=== PATIENT | male | born 1995 | race Two or more races ===

== ENCOUNTER 2023-08-12 09:35 | Emergency (ER) | payer SELFPAY ==
[2023-08-12 09:40] VITALS: BP 161/74; PULSE 51; TEMP 36.7; O2SAT 98; BMI 39.7
--- NOTE | 2023-08-12 10:04 | XR_ITS ---
[facility] [id number] Patient Name: BEA STEEL MRN: [id number] date: 1995 Sex: M Assigned Patient Location: ER Current Patient Location: ER Accession/Order Number: [id number] Exam Date: 08/12/2023 10:30 Report Date: 08/12/2023 10:58 At the request of: MANJEET LI Procedure: XR abdomen min 2V EXAM: Abdomen flat and upright: HISTORY: Lower abdominal pain for 5 days. FINDINGS: Flat and upright views of the abdomen and pelvis show a normal bowel gas pattern. There is a mild amount stool in the colon. No abnormal calcifications are seen. The upright view shows a gentle levocurvature in the lower thoracic spine. Osseous structures are otherwise normal. XR/XR abdomen min 2V IMPRESSION: Grossly negative for an acute intra-abdominal process. If clinical concern remains, consider further imaging with CT. Electronically authenticated by: JOAN KEVIN Date: 08/12/2023 10:58
[2023-08-12] MEDS: 0.9 % SODIUM CHLORIDE 1,000 ML 1000 ML IV (10:09)
[2023-08-12] MEDS: KETOROLAC TROMETHAMINE 30 MG/ML VIAL 15 MG IVP (10:09)
[2023-08-12 10:20] LABS: Basophils Percent Auto 0.4 % (0.2-2.0); Eosinophils Absolute Auto 0.2 10^3/uL (0.0-0.7); Eosinophils Percent Auto 2.8 % (0.9-7.0); Hemoglobin 15.4 g/dL (14.0-18.0); Immature Granulocytes Abs Auto 0.02 10^3/uL (0.00-0.03); Immature Granulocytes Pct Auto 0.3 % (0.0-0.5); Lymphocytes Absolute Auto 2.1 10^3/uL (1.2-3.8); Lymphocytes Percent Auto 27.6 % (20.5-60.0); Mean Corpuscular HGB Conc 32.8 g/dL (29.9-35.2); Mean Corpuscular Volume 85.5 fL (80.0-94.0); Mean Platelet Volume 11.3 fL (9.5-13.5); Monocytes Absolute Auto 0.8 10^3/uL (0.3-0.8); Monocytes Percent Auto 10.1 % (1.7-12.0); Neutrophils Absolute Auto 4.4 10^3/uL (1.4-6.5); Neutrophils Percent Auto 58.8 % (43.0-75.0); Platelet Count 228 10^3/uL (150-450); Red Cell Distribution Width 12.6 % (11.0-15.0); White Blood Count 7.5 10^3/uL (4.0-11.0)
--- NOTE | 2023-08-12 10:28 | ED_ITS ---
HPI HPI - General Adult General Chief complaint: Abdominal Pain Stated complaint: ABDOMINAL/BACK PAIN Time Seen by Provider: 08/12/23 10:02 Source: patient Mode of arrival: walk-in Limitations: no limitations History of Present Illness HPI narrative: Patient is a 27-year-old who is presenting to the ER today with chief complaint of bilateral anterior, lateral, and lower back pain for the past 2 days to 3 days. Patient works [employer]. 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 Patient does not recall any specific event at work that caused the pain. Patient states that he does urinate a lot, patient does not feel that he drinks a lot of fluids. Patient had lab work and urine sample done 2 months ago that showed no acute abnormalities with his urine or labs. Patient has intermittent groin pain, but nothing specific. Patient has no rash. Patient states he has no abnormal bowel movements. No chest pain or shortness of breath. No fever or chills. No other acute complaints. Patient looks comfortable, is supposed to be working [employer] today. No diabetes that he is aware of. Patient says that his girlfriend was worried about possible hernias despite patient having no palpable hernias to abdominal wall, scrotum or to his inguinal area. All systems are negative except as noted/marked. All systems reviewed and otherwise negative. Nurses note and vital signs reviewed and patient is not hypoxic. General: The patient appears well and in no apparent distress. Patient is resting comfortably on cart. Patient is not toxic, lethargic, or listless Skin: Warm, dry, no pallor noted. There is no rash noted. No petechiae, purpura. Head: Normocephalic, atraumatic Eye: Normal conjunctiva, no drainage, EOMI. PERRL Ears, Nose, Mouth, and Throat: oral mucosa is moist. Nares patent. Mouth without vesicles. Cardiovascular: Regular Rate and Rhythm, no murmur, gallop, rub Respiratory: Patient is in no distress, no accessory muscle use, lungs are clear to auscultation, no wheezing, rales or rhonchi Back: non-tender, no CVA tenderness bilaterally to percussion. No CT LS midline pain GI: Obese, patient has mild right and left lower quadrant tenderness palpation, mild flank pain bilateral, no true CVA tenderness palpation, no tenderness to palpation, no masses appreciated. No rebound, guarding, or rigidity noted. No distention : Patient is circumcised, 2 descended testicles, no tenderness to palpation to bilateral testicles, negative hernia bilateral. No pain to bilateral inguinal canals. No signs of hernia. No signs of direct hernia to lower abdomen Musculoskeletal: Patient has full range of motion of all of the extremities, no motor, sensory, or focal neurological deficits Neurological: A&O x4, normal speech Psychiatric: Cooperative Related Data Home Medications ?Medication ?Instructions ?Recorded ?Confirmed No Known Home Medications 08/12/23 08/12/23 Allergies Allergy/AdvReac Type Severity Reaction Status Date / Time No Known Drug Allergies Allergy Verified 08/12/23 09:43 Opioid HPI Opioid Management Most Recent Opioid Data: Last Pain Scale 4 08/12/23 09:47 Last MAR Pain Assessment 08/12/23 10:09 Exam Constitutional Vital Signs, click to edit/add: Last Vital Signs Temp 98.1 F 08/12/23 09:40 Pulse 50 L 08/12/23 10:58 Resp 18 08/12/23 10:58 BP 129/58 08/12/23 10:58 Pulse Ox 99 08/12/23 10:58 Course Vital Signs Vital signs: Vital Signs Temperature 98.1 F 08/12/23 09:40 Pulse Rate 51 L 08/12/23 09:40 Respiratory Rate 18 08/12/23 09:40 Blood Pressure 161/74 H 08/12/23 09:40 Pulse Oximetry 98 08/12/23 09:40 Temperature 98.1 F 08/12/23 09:40 Pulse Rate 50 L 08/12/23 10:58 Respiratory Rate 18 08/12/23 10:58 Blood Pressure 129/58 08/12/23 10:58 Pulse Oximetry 99 08/12/23 10:58 Medical Decision Making [facility] Narrative Medical decision making narrative: Patient is telling nursing staff that he is a 7/10 pain, however patient is laughing, talking the family, playing on his phone, patient looks well and has no significant signs of pain at all. Patient's abdominal exam is very non-impressive,Mild pain to lower quadrants. Patient's lab work and x-ray showed no significant findings, urine shows no signs of diabetes. Patient will follow-up with PCP for further testing. Work note was given, patient's return to work tomorrow. 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 No signs of hernia. Lab Data Lab results reviewed: Yes I reviewed the patient's lab results Labs: Lab Results 08/12/23 08/12/23 Range/Units 09:54 10:07 WBC 7.5 (4.0-11.0) 10^3/uL RBC 5.50 (4.70-6.10) 10^6/uL Hgb 15.4 (14.0-18.0) g/dL Hct 47.0 (42.0-54.0) % MCV 85.5 (80.0-94.0) fL MCH 28.0 (25.9-34.0) pg MCHC 32.8 (29.9-35.2) g/dL RDW 12.6 (11.0-15.0) % Plt Count 228 (150-450) 10^3/uL MPV 11.3 (9.5-13.5) fL Neut % (Auto) 58.8 (43.0-75.0) % Lymph % (Auto) 27.6 (20.5-60.0) % Morrison % (Auto) 10.1 (1.7-12.0) % Eos % (Auto) 2.8 (0.9-7.0) % Baso % (Auto) 0.4 (0.2-2.0) % Neut # (Auto) 4.4 (1.4-6.5) 10^3/uL Lymph # (Auto) 2.1 (1.2-3.8) 10^3/uL Morrison # (Auto) 0.8 (0.3-0.8) 10^3/uL Eos # (Auto) 0.2 (0.0-0.7) 10^3/uL Baso # (Auto) 0.0 (0.0-0.1) 10^3/uL Abs Immat Gran (auto) 0.02 (0.00-0.03) 10^3/uL Imm/Tot Granulo (auto) 0.3 (0.0-0.5) % Sodium 139 (136-145) mmol/L Potassium 4.2 (3.5-5.1) mmol/L Chloride 103 (98-107) mmol/L Carbon Dioxide 27.4 (21.0-32.0) mmol/L Anion Gap 12.8 BUN 16.0 (7.0-18.0) mg/dL Creatinine 0.84 (0.70-1.30) mg/dL Est GFR ( Amer) >60 (>=60) Est GFR (Non-Af Amer) >60 (>=60) BUN/Creatinine Ratio 19.0 Glucose 103 (74-106) mg/dL Calcium 9.4 (8.5-10.1) mg/dL Total Bilirubin 0.5 (0.2-1.0) mg/dL AST 26 (15-37) U/L ALT 60 (16-63) U/L Alkaline Phosphatase 88 (46-116) U/L Total Protein 7.7 (6.4-8.2) g/dL Albumin 3.8 (3.4-5.0) g/dL Globulin 3.9 g/dL Albumin/Globulin Ratio 1.0 Lipase 36.0 (16.0-77.0) U/L Urine Color Lt. yellow (YELLOW) Urine Clarity Clear (CLEAR) Urine pH 6.0 (5.0-9.0) Ur Specific [place] 1.025 (1.005-1.025) Urine Protein Negative (NEG/TRACE) mg/dL Urine Glucose (UA) Negative (NEGATIVE) mg/dL Urine Ketones Negative (NEGATIVE) mg/dL Urine Occult Blood Negative (NEGATIVE) Urine Nitrite Negative (NEGATIVE) Urine Bilirubin Negative (NEGATIVE) Urine Urobilinogen 0.2 (0.2-1.0) EU/dL Ur Leukocyte Esterase Negative (NEGATIVE) Urine RBC 0-2 (0-2) #/HPF Urine WBC None seen (NONE SEEN) #/HPF Ur Squamous Epith Cells Rare (NONE/RARE) #/LPF Urine Crystals None seen (None Seen) #/HPF Urine Bacteria Trace A (NONE SEEN) #/HPF Urine Casts None seen (NONE SEEN) #/LPF Urine Mucus Trace A (NONE SEEN) Discharge Plan Discharge Stand Alone Forms: Work/School Release, Portal Instructions Chief Complaint: Abdominal Pain Clinical Impression: Abdominal pain Patient Disposition: Home, Self-Care Time of Disposition Decision: 11:34 Condition: Fair Prescriptions / Home Meds: No Action No Known Home Medications Print Language: Turkmen Instructions: Abdominal Pain (ED) Additional Instructions: Increase fluids, follow-up with PCP. Surgeon has been referred to you if you would need a EGD or colonoscopy possibly. Alternate Tylenol and Motrin [id number] as needed for pain. Increase fluids. Referrals: Brock Deng MD [Physician] - 1 week Physician,Non-StaffMD [Primary Care Provider] - 1 week Discharge Date/Time: 08/12/23 11:43
[2023-08-12 10:29] LABS: Bilirubin Urine NEGATIVE (NEGATIVE); Blood Urine NEGATIVE (NEGATIVE); Clarity Urine CLEAR (CLEAR); Color Urine LT. YELLOW (YELLOW); Glucose Urine UA NEGATIVE (NEGATIVE); Ketones Urine NEGATIVE (NEGATIVE); Leukocyte Esterase Urine NEGATIVE (NEGATIVE); Nitrite Urine NEGATIVE (NEGATIVE); Protein Urine NEGATIVE (NEG/TRACE); Specific Gravity Urine 1.025 (1.005-1.025); Urobilinogen Urine 0.2 EU/dL (0.2-1.0)
[2023-08-12 10:31] LABS: Alanine Aminotransferase 60 U/L (16-63); Albumin Level 3.8 g/dL (3.4-5.0); Alkaline Phosphatase 88 U/L (46-116); Anion Gap 12.8; Aspartate Amino Transferase 26 U/L (15-37); Bilirubin Total 0.5 mg/dL (0.2-1.0); Calcium 9.4 mg/dL (8.5-10.1); Carbon Dioxide 27.4 mmol/L (21.0-32.0); Chloride 103 mmol/L (98-107); Estimated GFR (African America >60 (>=60); Estimated GFR (Non-African Ame >60 (>=60); Globulin 3.9 g/dL; Glucose 103 mg/dL (74-106); Potassium 4.2 mmol/L (3.5-5.1); Sodium 139 mmol/L (136-145); Total Protein 7.7 g/dL (6.4-8.2)
[2023-08-12 10:38] LABS: Bacteria Urine TRACE #/HPF (NONE SEEN); RBC Urine 0-2 #/HPF (0-2); WBC Urine NONE SEEN #/HPF (NONE SEEN)
[2023-08-12 10:39] LABS: Cast Seen? NONE SEEN #/LPF (NONE SEEN); Crystals Seen? None Seen #/HPF (None Seen); Mucus Urine TRACE (NONE SEEN); Squamous Epithelial Cell Urine RARE #/LPF (NONE/RARE)
[2023-08-12 10:58] VITALS: BP 129/58; PULSE 50; O2SAT 99
== END 2023-08-12 11:43 | disposition home or self-care (01) ==
PROVIDERS: Emergency Provider Emergency Medicine
DX: R10.9 Unspecified abdominal pain (principal); M54.50 Low back pain, unspecified
CPT/HCPCS: 36415; 74019; 80053; 81001; 83690; 85025; 96374; 99284

== ENCOUNTER 2023-09-24 12:55 | Emergency (ER) | payer SELFPAY ==
[2023-09-24 13:00] VITALS: BP 184/86; PULSE 63; TEMP 36.8; O2SAT 96; BMI 44.7
--- OUTSIDE RECORDS SUMMARY | 2023-09-24 13:19 | XMS_ITS ---
Patient Summarization (C-CDA 2.1 CCD) Created on: September 24, 2023 BEA STEEL III : 1995 Sex: Undifferentiated Author Organization Sample organization Care Team Providers Care Professor Of Theatre Name Role Phone PRINCESS RUFFIN Referring Unavailable PRINCESS RUFFIN Primary Care Unavailable Encounters Encounter Date Encounter Type Care Provider Facility Start: 05-23-2023 End: 05-24-2023 ambulatory PRINCESS RUFFIN [facility] Payers Date Payer Category Payer Medicaid 1995 Unknown [id number] Problems Problem Classification Problem Date Documented Da te Episodic/Chronic Unclassified (1 source) Elevation of levels of liver transaminase levels; Translations: [Elevation of levels of liver transaminase levels] Onset: 05-23-2023 Results Test Name Value Interpretation Reference Range Facil ity US ABDOMEN LMTDon 05-24-2023 US ABDOMEN LMTD US ABDOMEN LMTD HISTORY: A 27-year-old male with the history of the elevated ALT. TECHNIQUE: Multiple real-time images of the right upper abdomen are obtained. The color Doppler study is performed. COMPARISON: Comparison is made with the CT scan of the abdomen and pelvis of 10/07/2022. FINDINGS: Examination is compromised due to overlying bowel gas shadows and patient's body habitus. The visualized liver is normal in morphology. There is increase echogenicity in liver consistent with fatty infiltration of the liver. No focal mass is identified. The gallbladder is normal in size, configuration and thickness. The gallbladder wall thickness measures 1.6 mm. There is no evidence of echogenic foci or acoustic shadowing to suggest cholelithiasis. The common bile duct is normal and measures 2.6 mm in diameter. No intrahepatic biliary ductal dilatation is identified. There is a negative sonographic Nolasco's sign. There is a partial visualization of the pancreas due to overlying bowel gas shadows. No discrete mass is seen in the visualized pancreas. There is no evidence of free fluid in the upper abdomen. The color Doppler study reveals normal hepatopedal flow in the main portal vein. IMPRESSION: 1. No evidence of cholelithiasis or biliary ductal dilatation. There is a negative sonographic Nolasco's sign. 2. Fatty infiltration of the liver without evidence of focal mass. 3. Partial visualization of the pancreas is unremarkable. Finalized by Campos Ramos MD on 05/24/2023 6:01 AM Normal [facility] Summary Purpose Family History No Family History Records Found Advance Directives No Advanced Directives Records Found Additional Source Comments (unrecognized sect ion and content) No Status Records Found INFORMATION SOURCE (unrecogn ized section and content) DATE CREATED AUTHOR 05/30/2023 [facility] FOR RECORDS PERTAINING TO PATIENTS WHO ARE OR HAVE BEEN ENROLLED IN A CHEMICAL DEPENDENCY/SUBSTANCEABUSE PROGRAM, SOME INFORMATION MAY BE OMITTED. This clinical summary was aggregated from multiple sources. Caution should be exercised in using it in the provision of clinical care. This summary normalizes information from multiple sources, and as a consequence, information in this document may materially change the coding, format and clinical context of patient data. In addition, data may be omitted in some cases. CLINICAL DECISIONS SHOULD BE BASED ON THE PRIMARY CLINICAL RECORDS. [employer] [facility]. provides no warranty or guarantee of the accuracy or completeness of information in this document.
[2023-09-24 13:35] VITALS: BP 140/84
--- NOTE | 2023-09-24 13:52 | ED_ITS ---
HPI HPI - General Adult General Chief complaint: Skin/Abscess/Foreign Body Stated complaint: BURNING IN GROIN AREA Time Seen by Provider: 09/24/23 12:57 Source: patient Mode of arrival: walk-in History of Present Illness HPI narrative: Patient presents ED complaining of burning in his groin. He was concerned because he has a small bump on His scrotum and he was concern for possible herpes. He thinks it also could be an ingrown hair. He also complains of some pain in the groin and does work out a lot and does have some redness and rawness in the groin area. He denies any burning with urination he denies any trouble with his bowel movements. He has been in a relationship for 10 years and denies STD. He said He read on the Internet that he could get it from the Toilet seat so he was concerned. He does not want gonorrhea or chlamydia or trichomonas testing at this time. Related Data Previous Rx's ?Medication ?Instructions ?Recorded nystatin 100,000 unit/gram topical 1 applic topical BID 7 days #15 09/24/23 cream grams Allergies Allergy/AdvReac Type Severity Reaction Status Date / Time No Known Drug Allergies Allergy Verified 08/12/23 09:43 Opioid HPI Opioid Management Most Recent Opioid Data: Last Pain Scale 4 08/12/23 09:47 Review of Systems ROS Status of ROS 10 or more systems reviewed and unremark able except as noted in history and below Exam Narrative Exam Narrative: General: alert, no acute distress Cardiovascular: regular rate and rhythm, normal peripheral perfusion. Respiratory: Lungs CTA, respirations non labored. Extremities: no deformity, no trauma. Neurological: oriented x 4, LOC appropriate for age. Erythema and raw skin bilateral groin. Small bump on the left scrotal area. No open sore no blister Constitutional Vital Signs, click to edit/add: Last Vital Signs Temp 98.2 F 09/24/23 13:00 Pulse 63 09/24/23 13:00 Resp 18 09/24/23 13:00 BP 140/84 09/24/23 13:35 Pulse Ox 96 09/24/23 13:00 O2 Del Method Room Air 09/24/23 13:00 Course Vital Signs Vital signs: Vital Signs Temperature 98.2 F 09/24/23 13:00 Pulse Rate 63 09/24/23 13:00 Respiratory Rate 18 09/24/23 13:00 Blood Pressure 184/86 H 09/24/23 13:00 Pulse Oximetry 96 09/24/23 13:00 Oxygen Delivery Method Room Air 09/24/23 13:00 Temperature 98.2 F 09/24/23 13:00 Pulse Rate 63 09/24/23 13:00 Respiratory Rate 18 09/24/23 13:00 Blood Pressure 140/84 09/24/23 13:35 Pulse Oximetry 96 09/24/23 13:00 Oxygen Delivery Method Room Air 09/24/23 13:00 Medical Decision Making MDM Narrative Medical decision making narrative: Patient will be treated with Nystatin cream in the groin area For possible yeast infection. A swab was obtained over the bump because patient was concerned for herpes. Those test results will be back in a couple of days please follow-up with that. Return to ED if worsening symptoms otherwise follow-up with your family doctor. Differential Diagnosis Differential Diagnosis: Herpes, yeast infection, STD Discharge Plan Discharge Stand Alone Forms: Portal Instructions Chief Complaint: Skin/Abscess/Foreign Body Clinical Impression: Yeast dermatitis Patient Disposition: Home, Self-Care Time of Disposition Decision: 13:35 Mode of Transportation: Private Vehicle Prescriptions / Home Meds: New nystatin 100,000 unit/gram cream 1 applic topical BID 7 Days Qty: 15 0RF Print Language: Pashto Instructions: Skin Yeast Infection (ED) Referrals: Physician,Non-Staff, MD [Primary Care Provider] - 1 week Discharge Date/Time: 09/24/23 13:43
== END 2023-09-24 13:43 | disposition home or self-care (01) ==
PROVIDERS: Emergency Provider Emergency Medicine
DX: B37.2 Candidiasis of skin and nail (principal)
CPT/HCPCS: 87255; 99283